=== PATIENT | female | born 1980 | race Caucasian/White ===

== ENCOUNTER 2018-10-08 03:50 | Inpatient (IN) | payer MEDICAID ==
[2018-10-08] MEDS ORDERED: OXYTOCIN 30 UNITS/LR 500 ML IV ×3 (04:30→14:00)
[2018-10-08] MEDS ORDERED: CARBOPROST 250 MCG INJ IM ×2 (04:30→14:00)
[2018-10-08] MEDS ORDERED: MISOPROSTOL 200 MCG TAB PR ×2 (04:30→14:00)
[2018-10-08] MEDS ORDERED: METHYLERGONOVINE 0.2 MG INJ IM ×2 (04:30→14:00)
[2018-10-08] MEDS ORDERED: LIDOCAINE 1% (MPF) 30 ML INJ INJ (04:30)
[2018-10-08] MEDS: BUTORPHANOL 2 MG INJ IV (05:25)
[2018-10-08 05:30] LABS: ADD MAN DIFF? NO
[2018-10-08] MEDS: LACTATED RINGER'S 1,000 ML IV ×4 (05:34→11:58)
[2018-10-08 05:55] LABS: BASOPHILS % 0.3 % (0.0-2.0); HEMATOCRIT 38.4 % (37.0-47.0); HEMOGLOBIN 12.6 g/dl (12.0-16.0); LYMPHOCYTES % 15.9 % (15.0-51.0); MEAN CORPUSCULAR HEMOGLOBIN 29.8 pg (29.0-33.0); MEAN CORPUSCULAR HGB CONC 32.8 g/dl (32.0-37.0); MEAN CORPUSCULAR VOLUME 90.8 fl (82.0-101.0); MEAN PLATELET VOLUME 11.4 fl (7.4-10.4); MONOCYTE # 0.8 10^3/ul (0.3-0.9); MONOCYTES % 6.6 % (0.0-11.0); NEUTROPHIL # 9.8 10^3/ul (1.6-7.5); NEUTROPHILS % 76.7 % (39.0-77.0); PLATELET COUNT 310 10^3/UL (140-415); RED BLOOD COUNT 4.23 10^6/ul (4.20-5.40); RED CELL DISTRIBUTION WIDTH 14.2 % (11.5-14.5)
[2018-10-08 05:55] LABS: WHITE BLOOD COUNT 12.7 10^3/ul (4.8-10.8)
[2018-10-08 05:56] LABS: BARBITURATES Negative (NEGATIVE); BENZODIAZEPINES Negative (NEGATIVE); CANNABINOIDS Negative (NEGATIVE); COCAINE Negative (NEGATIVE); OPIATES Negative (NEGATIVE)
[2018-10-08 06:02] LABS: AMPHETAMINE/METHAMPHETAMINE Negative (NEGATIVE)
[2018-10-08 06:07] LABS: INR 0.94; PROTIME 12.7 Sec (11.9-14.9)
[2018-10-08 06:08] LABS: PARTIAL THROMBOPLASTIN TIME 27.5 Sec (23.0-35.0)
[2018-10-08 06:37] LABS: HEPATITIS B SURFACE ANTIGEN NEGATIVE (NEGATIVE)
[2018-10-08] MEDS ORDERED: NALOXONE (0.4 MG/ML) INJ IV (07:30)
[2018-10-08] MEDS ORDERED: DIPHENHYDRAMINE 50 MG INJ IV ×2 (07:30→14:00)
[2018-10-08] MEDS ORDERED: FENTAnyl 2MCG/ML-ROPIV 0.2% 100 ML BAG EPI (07:30)
[2018-10-08] MEDS ORDERED: HYDROmorphONE 0.5 MG/0.5 ML SYG IV ×2 (07:30)
[2018-10-08] MEDS ORDERED: ZOLPIDEM 5 MG TAB PO ×2 (07:30→14:00)
[2018-10-08] MEDS ORDERED: ONDANSETRON 4 MG INJ IV ×2 (07:30→14:00)
[2018-10-08] MEDS ORDERED: KETOROLAC 30 MG INJ IV (07:30)
[2018-10-08] MEDS: OXYTOCIN 30 UNITS/LR 500 ML IV ×2 (12:02→12:36)
[2018-10-08] MEDS: MINERAL OIL LIGHT 10 ML VIAL TOP (12:13)
[2018-10-08] MEDS: LACTATED RINGER'S 1,000 ML IV* (13:43)
[2018-10-08] MEDS: DEXTROSE 5%-LR 1,000 ML IV (13:43)
[2018-10-08] MEDS ORDERED: OXYCODONE/ASPIRIN (4.88/325) TAB PO (14:00)
[2018-10-08] MEDS ORDERED: ACETAMINOPHEN 325 MG TAB PO (14:00)
[2018-10-08] MEDS ORDERED: DIBUCAINE 1% 30 GM OINT TOP (14:00)
[2018-10-08] MEDS: WITCH HAZEL/GLYCERIN PAD PR (15:34)
[2018-10-08] MEDS: LANOLIN HPA 1 PKT TOP ×2 (15:34→15:36)
[2018-10-08] MEDS: BENZOCAINE 20% 56 ML SPRAY TOP (15:35)
[2018-10-08 15:42] LABS: RAPID PLASMA REAGIN NONREACTIVE (NR)
[2018-10-08] MEDS: IBUPROFEN 600 MG TAB PO ×2 (17:45→23:43)
[2018-10-08] MEDS: SENNA/DOCUSATE NA (8.6MG/50MG) TAB PO (21:27)
[2018-10-08] MEDS: MAGNESIUM HYDROXIDE 30ML CUP PO (21:27)
[2018-10-09] MEDS: IBUPROFEN 600 MG TAB PO ×4 (05:48→23:48)
[2018-10-09 08:37] LABS: ADD MAN DIFF? NO
[2018-10-09 08:41] LABS: WHITE BLOOD COUNT 10.6 10^3/ul (4.8-10.8)
[2018-10-09 08:41] LABS: BASOPHIL # 0.1 10^3/ul (0.0-0.1); BASOPHILS % 0.5 % (0.0-2.0); EOSINOPHILS % 0.3 % (0.0-7.0); HEMATOCRIT 32.6 % (37.0-47.0); HEMOGLOBIN 10.6 g/dl (12.0-16.0); LYMPHOCYTES # 2.5 10^3/ul (0.8-2.9); LYMPHOCYTES % 23.3 % (15.0-51.0); MEAN CORPUSCULAR HEMOGLOBIN 29.9 pg (29.0-33.0); MEAN CORPUSCULAR HGB CONC 32.5 g/dl (32.0-37.0); MEAN CORPUSCULAR VOLUME 92.1 fl (82.0-101.0); MEAN PLATELET VOLUME 11.6 fl (7.4-10.4); MONOCYTE # 1.1 10^3/ul (0.3-0.9); MONOCYTES % 10.5 % (0.0-11.0); NEUTROPHIL # 6.8 10^3/ul (1.6-7.5); NEUTROPHILS % 64.8 % (39.0-77.0); PLATELET COUNT 253 10^3/UL (140-415); RED BLOOD COUNT 3.54 10^6/ul (4.20-5.40); RED CELL DISTRIBUTION WIDTH 14.6 % (11.5-14.5)
[2018-10-09] MEDS: SENNA/DOCUSATE NA (8.6MG/50MG) TAB PO ×2 (09:50→21:31)
[2018-10-09] MEDS: MAGNESIUM HYDROXIDE 30ML CUP PO (21:31)
[2018-10-10] MEDS: IBUPROFEN 600 MG TAB PO ×2 (05:41→11:37)
[2018-10-10] MEDS: LANOLIN HPA 1 PKT TOP (05:41)
[2018-10-10] MEDS: DIPHTH/TET/ACEL PERTUSS (ADULT) 0.5 ML VIAL IM* (09:00)
[2018-10-10] MEDS: MEASLES,MUMPS,RUBELLA VACCINE INJ SC* (09:11)
== END 2018-10-10 17:33 | disposition home or self-care (01) | DRG 807 ==
LOC: OBT 03:50 → L-D 03:50 → OBT 04:24 → L-D 04:24 → PP1 14:05
PROC: 10E0XZZ Delivery of Products of Conception, External Approach (ICD-10-PCS; principal; 2018-10-08)
PROC: 0HQ9XZZ Repair Perineum Skin, External Approach (ICD-10-PCS; 2018-10-08)
PROC: 10907ZC Drainage of Amniotic Fluid, Therapeutic from Products of Conception, Via Natural or Artificial Opening (ICD-10-PCS; 2018-10-08)
DX: O77.0 Labor and delivery complicated by meconium in amniotic fluid (principal); Z37.0 Single live birth; O70.0 First degree perineal laceration during delivery; O90.81 Anemia of the puerperium; D64.9 Anemia, unspecified; Z3A.38 38 weeks gestation of pregnancy
CPT/HCPCS: 62322; 80307; 82962; 85025; 85610; 85730; 86592; 86850; 86900; 86901; 87340